=== PATIENT | male | born 1945 | race Caucasian/White ===

== ENCOUNTER 2017-06-01 12:42 | Emergency (ER) | payer MEDICARE, OTHER ==
[~2017-06-01] VITALS: Ht 180.3 cm; Wt 108.8 kg
[~2017-06-01 12:42] MED LIST: APIX5TAB PO; FENO145T13 PO; FINA5TAB4 PO; METO25TA91 PO; NIAC500T9 PO; ROSU5TAB18 PO
[2017-06-01 13:54] LABS: INTERNATIONAL NORMALIZED RATIO 1.09 (0.93-1.1); PROTHROMBIN TIME 11.2 Seconds (9.6-11.5)
[2017-06-01 13:58] LABS: ALANINE AMINOTRANSFERASE 14 U/L (12-78); ALBUMIN 3.8 g/dL (3.4-5.0); ANION GAP 6 mmol/L (5-15); CALCIUM 8.1 mg/dL (8.5-10.1); CHLORIDE 111 mmol/L (98-107); CREATININE 0.96 mg/dL (0.7-1.3)
[2017-06-01 13:59] LABS: ALKALINE PHOSPHATASE 71 U/L (45-117); BILIRUBIN,TOTAL 0.3 mg/dL (0.2-1.0)
[2017-06-01 14:17] LABS: BASOPHILS # (AUTO) 0.07 x10^3/uL (0-0.1); BASOPHILS % (AUTO) 1 % (0-1); EOSINOPHILS # (AUTO) 0.09 x10^3/uL (0-0.4); EOSINOPHILS % (AUTO) 2 % (1-7); LYMPHOCYTES # (AUTO) 0.97 x10^3/uL (1-3.4); LYMPHOCYTES % (AUTO) 19 % (22-44); MD NO; MEAN CORPUSCULAR HEMOGLOBIN 24.7 pg (27.5-34.5); MEAN CORPUSCULAR HGB CONC 31.9 g/dL (33.2-36.2); MEAN CORPUSCULAR VOLUME 77.5 fL (81-97); MEAN PLATELET VOLUME 10.3 fL (7.4-10.4); MONOCYTES # (AUTO) 0.62 x10^3/uL (0.2-0.8); MONOCYTES % (AUTO) 12 % (2-9); NEUTROPHILS # (AUTO) 3.36 x10^3/uL (1.8-6.8); NEUTROPHILS % (AUTO) 66 % (42-75); PLATELET COUNT 222 x10^3/uL (130-400); RED BLOOD COUNT 3.88 x10^6/uL (4.38-5.82); RED CELL DISTRIBUTION WIDTH 15.4 % (9.4-14.8)
[2017-06-01] MEDS ORDERED: MULT-658 PO (15:19)
[2017-06-01] MEDS ORDERED: POTA99TA24 PO (15:19)
[2017-06-01 15:38] VITALS: BP 135/69
== END 2017-06-01 16:09 | disposition home or self-care (01) ==
LOC: ED 16:00
DX: L27.0 Generalized skin eruption due to drugs and medicaments taken internally (principal); K21.9 Gastro-esophageal reflux disease without esophagitis; E78.5 Hyperlipidemia, unspecified; I48.91 Unspecified atrial fibrillation; Z87.891 Personal history of nicotine dependence
CPT/HCPCS: 36415; 80053; 85025; 85610; 85730; 99284

== ENCOUNTER 2017-09-22 18:30 | Inpatient (IN) | payer MEDICARE, OTHER ==
[~2017-09-22] VITALS: Ht 181.6 cm; Wt 102.6 kg
[~2017-09-22 18:30] MED LIST changes: -DRON400T PO; -FERR325T16 PO; -POLY17PO5 PO
[2017-09-22] MEDS ORDERED: SODIUM CHLORIDE FLUSH 10ML SYR IVF ONE (19:00)
[2017-09-22 19:15] LABS: INTERNATIONAL NORMALIZED RATIO 1.06 (0.93-1.1); PROTHROMBIN TIME 10.9 Seconds (9.6-11.5)
[2017-09-22 19:21] LABS: MD YES; MEAN CORPUSCULAR HEMOGLOBIN 21.8 pg (27.5-34.5); MEAN CORPUSCULAR HGB CONC 31.1 g/dL (33.2-36.2); MEAN CORPUSCULAR VOLUME 70.1 fL (81-97); MEAN PLATELET VOLUME 11.7 fL (7.4-10.4); PLATELET COUNT 218 x10^3/uL (130-400); RED BLOOD COUNT 3.05 x10^6/uL (4.38-5.82); RED CELL DISTRIBUTION WIDTH 19.1 % (9.4-14.8)
[2017-09-22 19:22] LABS: ALANINE AMINOTRANSFERASE 16 U/L (12-78); ALBUMIN 3.8 g/dL (3.4-5.0); ANION GAP 8 mmol/L (5-15); CALCIUM 8.9 mg/dL (8.5-10.1); CHLORIDE 110 mmol/L (98-107)
[2017-09-22 19:23] LABS: TROPONIN I < 0.015 ng/mL (0.000-0.045)
[2017-09-22 19:26] LABS: ALKALINE PHOSPHATASE 54 U/L (45-117); BILIRUBIN,TOTAL 0.7 mg/dL (0.2-1.0); CREATININE 1.09 mg/dL (0.7-1.3); TOTAL PROTEIN 6.6 g/dL (6.4-8.2)
[2017-09-22 19:43] LABS: ANISOCYTOSIS 1+; BASOS#(MANUAL) 0.04 x10^3/uL (0-0.1); BASOS% (MANUAL) 1 % (0-1); EOS#(MANUAL) 0.23 x10^3/uL (0.0-0.4); EOS% (MANUAL) 6 % (1-7); HYPOCHROMIA 1+; LYMPH#(MANUAL) 0.59 x10^3/uL (1-3.4); LYMPHS% (MANUAL) 15 % (22-44); MONOS#(MANUAL) 0.43 x10^3/uL (0.3-2.7); MONOS% (MANUAL) 11 % (2-9); OVALOCYTES 1+; SEG#(MANUAL) 2.61 x10^3/uL (1.8-6.8); SEGS% (MANUAL) 67 % (42-75); TARGET CELLS 1+
[2017-09-22 19:44] LABS: <PLATELET ESTIMATE> ADEQUATE; LARGE PLATELETS 2+
[2017-09-22 20:06] VITALS: BP 126/62
[2017-09-22 21:00] VITALS: BP 154/74
[2017-09-22 23:07] VITALS: BP 121/70
[2017-09-22 23:28] VITALS: BP 135/72
[2017-09-23] VITALS (10 sets, daily range): BP systolic 124–161; BP diastolic 60–82
[2017-09-23] MEDS ORDERED: DRON400T PO (00:05)
[2017-09-23] MEDS ORDERED: DRONEDARONE 400MG TABLET PO ONE (01:00)
[2017-09-23] MEDS ORDERED: OXYcodone IR 5MG TABLET PO PRN (02:00)
[2017-09-23] MEDS ORDERED: morphine SULFATE 10 MG/ML, 1ML IVPush PRN (02:00)
[2017-09-23] MEDS ORDERED: ACETAMINOPHEN 325 MG TABLET PO PRN (02:00)
[2017-09-23] MEDS ORDERED: ONDANSETRON 2MG/ML, 2ML IVPush PRN (02:00)
[2017-09-23] MEDS ORDERED: DOCUSATE 100 MG CAPSULE PO PRN (02:00)
[2017-09-23] MEDS ORDERED: hydrALAzine 20 MG/ML, 1ML IVPush PRN (02:00)
[2017-09-23] MEDS ORDERED: BISACODYL 10 MG SUPP PR PRN (02:00)
[2017-09-23] MEDS ORDERED: POLYETHYLENE GLYCOL 17 GM PACKET PO PRN (02:00)
[2017-09-23] MEDS ORDERED: ONDANSETRON ODT 4 MG PO PRN (02:00)
[2017-09-23 02:47] LABS: FREE T4 (FREE THYROXINE) 0.84 ng/dL (0.76-1.46); THYROID STIMULATING HORMONE 1.22 mIU/L (0.358-3.740)
[2017-09-23] MEDS: SODIUM CHLORIDE 0.9% 1,000 ML IV SCH ×2 (02:54→20:27)
[2017-09-23 03:50] LABS: MICROSCOPIC NOT IND
[2017-09-23 03:52] LABS: CULTURE INDICATED? NO
[2017-09-23 05:44] LABS: CHLORIDE 110 mmol/L (98-107)
[2017-09-23 05:50] LABS: ALANINE AMINOTRANSFERASE 14 U/L (12-78); ALBUMIN 3.4 g/dL (3.4-5.0); ALKALINE PHOSPHATASE 42 U/L (45-117); ANION GAP 8 mmol/L (5-15); BILIRUBIN,TOTAL 0.4 mg/dL (0.2-1.0); CALCIUM 8.4 mg/dL (8.5-10.1); CREATININE 0.87 mg/dL (0.7-1.3); TOTAL PROTEIN 5.9 g/dL (6.4-8.2)
[2017-09-23 06:09] LABS: MEAN CORPUSCULAR HEMOGLOBIN 23.9 pg (27.5-34.5); MEAN CORPUSCULAR HGB CONC 32.5 g/dL (33.2-36.2); MEAN CORPUSCULAR VOLUME 73.5 fL (81-97); MEAN PLATELET VOLUME 11.6 fL (7.4-10.4); PLATELET COUNT 192 x10^3/uL (130-400); RED BLOOD COUNT 3.14 x10^6/uL (4.38-5.82); RED CELL DISTRIBUTION WIDTH 20.9 % (9.4-14.8)
[2017-09-23 06:12] LABS: BASOPHILS % (AUTO) 0 % (0-1); EOSINOPHILS # (AUTO) 0.08 x10^3/uL (0-0.4); EOSINOPHILS % (AUTO) 2 % (1-7); LYMPHOCYTES # (AUTO) 0.92 x10^3/uL (1-3.4); LYMPHOCYTES % (AUTO) 24 % (22-44); MD MORPH REVIEW ONLY; MONOCYTES # (AUTO) 0.49 x10^3/uL (0.2-0.8); MONOCYTES % (AUTO) 13 % (2-9); NEUTROPHILS # (AUTO) 2.31 x10^3/uL (1.8-6.8); NEUTROPHILS % (AUTO) 61 % (42-75)
[2017-09-23 06:13] LABS: OVALOCYTES 1+
[2017-09-23 06:14] LABS: ANISOCYTOSIS 1+
[2017-09-23 06:15] LABS: <PLATELET ESTIMATE> ADEQUATE; HYPOCHROMIA 1+; LARGE PLATELETS 2+
[2017-09-23] MEDS ORDERED: PANTOPRAZOLE 40 MG IV IVPush SCH (07:30)
[2017-09-23] MEDS: ATORVASTATIN 10 MG TABLET PO SCH (10:09)
[2017-09-23] MEDS: FENOFIBRATE 145 MG TABLET PO SCH (10:09)
[2017-09-23] MEDS: MULTIVITAMIN 1 TABLET PO SCH (10:09)
[2017-09-23] MEDS: METOPROLOL SUCCINATE 25 MG TAB.ER.24H PO SCH (10:09)
[2017-09-23] MEDS: DRONEDARONE 400MG TABLET PO SCH ×2 (10:09→20:27)
[2017-09-23] MEDS: FINASTERIDE 5 MG TABLET PO SCH (11:22)
[2017-09-24 02:08] VITALS: BP 145/79
[2017-09-24 05:40] LABS: CHOL/HDL RATIO 3.2; LDL/HDL RATIO 1.4 (0.5-3.0)
[2017-09-24 07:00] VITALS: BP 153/87
[2017-09-24 07:25] LABS: MEAN CORPUSCULAR HEMOGLOBIN 23.3 pg (27.5-34.5); MEAN CORPUSCULAR HGB CONC 31.4 g/dL (33.2-36.2); MEAN PLATELET VOLUME 11.9 fL (7.4-10.4); PLATELET COUNT 196 x10^3/uL (130-400); RED BLOOD COUNT 3.53 x10^6/uL (4.38-5.82); RED CELL DISTRIBUTION WIDTH 21.6 % (9.4-14.8)
[2017-09-24 07:42] LABS: BASOPHILS # (AUTO) 0.06 x10^3/uL (0-0.1); BASOPHILS % (AUTO) 2 % (0-1); EOSINOPHILS # (AUTO) 0.09 x10^3/uL (0-0.4); EOSINOPHILS % (AUTO) 2 % (1-7); LYMPHOCYTES # (AUTO) 0.98 x10^3/uL (1-3.4); LYMPHOCYTES % (AUTO) 22 % (22-44); MD SCAN; MONOCYTES # (AUTO) 0.54 x10^3/uL (0.2-0.8); MONOCYTES % (AUTO) 13 % (2-9); NEUTROPHILS % (AUTO) 62 % (42-75)
[2017-09-24] MEDS: DRONEDARONE 400MG TABLET PO SCH ×2 (07:55→20:54)
[2017-09-24] MEDS: FENOFIBRATE 145 MG TABLET PO SCH ×2 (07:56→20:52)
[2017-09-24] MEDS: PANTOPROZOLE 40MG TABLET PO SCH (07:56)
[2017-09-24] MEDS: MULTIVITAMIN 1 TABLET PO SCH (07:56)
[2017-09-24] MEDS: FINASTERIDE 5 MG TABLET PO SCH (07:57)
[2017-09-24] MEDS: METOPROLOL SUCCINATE 25 MG TAB.ER.24H PO SCH ×2 (07:57→20:53)
[2017-09-24] MEDS: IRON SUCROSE COMPLEX 100MG/5ML IV SCH (11:07)
[2017-09-24 13:05] VITALS: BP 153/87
[2017-09-24] MEDS ORDERED: GOLYTELY 4,000ML ORAL.SOL PO ONE (18:00)
[2017-09-24 19:23] VITALS: BP 159/79
[2017-09-24] MEDS: ATORVASTATIN 10 MG TABLET PO SCH (20:52)
[2017-09-25 02:51] VITALS: BP 151/83
[2017-09-25 07:09] VITALS: BP 123/78
[2017-09-25] MEDS ORDERED: POTASSIUM GLUCONATE 550 MG HOMEMEDPO SCH (09:00)
[2017-09-25] MEDS ORDERED: FENTANYL PF 100 MCG/2ML ONE (09:03)
[2017-09-25] MEDS ORDERED: MIDAZOLAM 1 MG/ML, 5ML ONE ×2 (09:03)
[2017-09-25] MEDS: IRON SUCROSE COMPLEX 100MG/5ML IV SCH (11:03)
[2017-09-25] MEDS: PANTOPROZOLE 40MG TABLET PO SCH (11:03)
[2017-09-25] MEDS: MULTIVITAMIN 1 TABLET PO SCH (11:03)
[2017-09-25] MEDS: DRONEDARONE 400MG TABLET PO SCH ×2 (11:04→20:16)
[2017-09-25] MEDS: FINASTERIDE 5 MG TABLET PO SCH (11:04)
[2017-09-25 12:39] VITALS: BP 104/65
[2017-09-25 19:06] VITALS: BP 108/64
[2017-09-25 20:10] VITALS: BP 131/69
[2017-09-25] MEDS: ATORVASTATIN 10 MG TABLET PO SCH (20:16)
[2017-09-25] MEDS: FENOFIBRATE 145 MG TABLET PO SCH (20:16)
[2017-09-25] MEDS: METOPROLOL SUCCINATE 25 MG TAB.ER.24H PO SCH (20:16)
[2017-09-26 00:39] VITALS: BP 124/71
[2017-09-26 06:53] VITALS: BP 106/64
[2017-09-26] MEDS: PANTOPROZOLE 40MG TABLET PO SCH (08:23)
[2017-09-26] MEDS: IRON SUCROSE COMPLEX 100MG/5ML IV SCH (10:07)
[2017-09-26] MEDS: ATORVASTATIN 10 MG TABLET PO SCH ×2 (10:08→10:10)
[2017-09-26] MEDS: FENOFIBRATE 145 MG TABLET PO SCH (10:08)
[2017-09-26] MEDS: FINASTERIDE 5 MG TABLET PO SCH (10:08)
[2017-09-26] MEDS: METOPROLOL SUCCINATE 25 MG TAB.ER.24H PO SCH (10:08)
[2017-09-26] MEDS: MULTIVITAMIN 1 TABLET PO SCH (10:08)
[2017-09-26] MEDS: DRONEDARONE 400MG TABLET PO SCH (10:08)
[2017-09-26] MEDS ORDERED: POLY17PO5 PO (11:00)
[2017-09-26] MEDS ORDERED: FERR325T16 PO (11:00)
== END 2017-09-26 12:15 | disposition home or self-care (01) | DRG 378 ==
LOC: ED 19:53 → 5SO 20:56 → EDIP 20:56 → DCLOUNGE 09-26 12:03
PROVIDERS: ADMIT Internal Medicine; ATTEND Internal Medicine
PROC: 30233N1 Transfusion of Nonautologous Red Blood Cells into Peripheral Vein, Percutaneous Approach (ICD-10-PCS; principal; 2017-09-22)
PROC: 0DBL8ZZ Excision of Transverse Colon, Via Natural or Artificial Opening Endoscopic (ICD-10-PCS; 2017-09-25)
PROC: 0DJ08ZZ Inspection of Upper Intestinal Tract, Via Natural or Artificial Opening Endoscopic (ICD-10-PCS; 2017-09-25 09:00)
DX: K57.31 Diverticulosis of large intestine without perforation or abscess with bleeding (principal); D68.69 Other thrombophilia; I71.2 Thoracic aortic aneurysm, without rupture; I48.91 Unspecified atrial fibrillation; I34.0 Nonrheumatic mitral (valve) insufficiency; E66.9 Obesity, unspecified; E78.5 Hyperlipidemia, unspecified; K63.5 Polyp of colon; I10 Essential (primary) hypertension; K21.9 Gastro-esophageal reflux disease without esophagitis; K64.8 Other hemorrhoids; N40.0 Benign prostatic hyperplasia without lower urinary tract symptoms; D50.9 Iron deficiency anemia, unspecified; Z79.01 Long term (current) use of anticoagulants; Z82.3 Family history of stroke; Z86.73 Personal history of transient ischemic attack (TIA), and cerebral infarction without residual deficits; Z87.891 Personal history of nicotine dependence; Z68.31 Body mass index [BMI] 31.0-31.9, adult
CPT/HCPCS: 36415; 71045; 80053; 80061; 81003; 82728; 83036; 83540; 83550; 83735; 84439; 84443; 84466; 84484; 85014; 85018; 85025; 85610; 86850; 86900; 86923; 88305; 93005; 99152; 99153; J1756; J2250; J3010; C9113; J7030; P9016

== ENCOUNTER → 2017-09-22 | Outpatient (CLI) | payer MEDICARE, OTHER ==
[~2017-09-22] MED LIST changes: +DRON400T PO; -FENO145T13 PO; +FENO145T30 PO; +FERR325T16 PO; +MULT-658 PO; +POLY17PO5 PO; +POTA99TA24 PO
[2017-09-22 16:12] LABS: ALBUMIN 3.8 g/dL (3.4-5.0); CALCIUM 8.3 mg/dL (8.5-10.1); CHLORIDE 111 mmol/L (98-107)
[2017-09-22 16:30] LABS: % IRON SATURATION 2 % (20-55); ALANINE AMINOTRANSFERASE 18 U/L (12-78); ALKALINE PHOSPHATASE 46 U/L (45-117); ANION GAP 10 mmol/L (5-15); BILIRUBIN,TOTAL 0.3 mg/dL (0.2-1.0); CREATININE 0.98 mg/dL (0.7-1.3); IRON LEVEL 8 mcg/dL (65-175); T4 (THYROXINE) 9.1 mcg/dL (4.5-12.1); THYROID STIMULATING HORMONE 0.998 mIU/L (0.358-3.740); TOTAL IRON BINDING CAPACITY 473 mcg/dL (250-450); TOTAL PROTEIN 6.6 g/dL (6.4-8.2)
[2017-09-22 17:20] LABS: MD SCAN; MEAN CORPUSCULAR HEMOGLOBIN 21.6 pg (27.5-34.5); MEAN CORPUSCULAR HGB CONC 30.8 g/dL (33.2-36.2); MEAN PLATELET VOLUME 12.1 fL (7.4-10.4); PLATELET COUNT 200 x10^3/uL (130-400); RED BLOOD COUNT 3.01 x10^6/uL (4.38-5.82); RED CELL DISTRIBUTION WIDTH 19.1 % (9.4-14.8)
[2017-09-22 17:21] LABS: BASOPHILS # (AUTO) 0.06 x10^3/uL (0-0.1); BASOPHILS % (AUTO) 2 % (0-1); EOSINOPHILS # (AUTO) 0.04 x10^3/uL (0-0.4); EOSINOPHILS % (AUTO) 1 % (1-7); LYMPHOCYTES % (AUTO) 20 % (22-44); MONOCYTES # (AUTO) 0.44 x10^3/uL (0.2-0.8); MONOCYTES % (AUTO) 13 % (2-9); NEUTROPHILS # (AUTO) 2.21 x10^3/uL (1.8-6.8); NEUTROPHILS % (AUTO) 64 % (42-75)
== END | disposition home or self-care (01) ==
LOC: CFH 11:43
PROVIDERS: ATTEND Internal Medicine Cardiovascular Disease
DX: I10 Essential (primary) hypertension (principal); I35.0 Nonrheumatic aortic (valve) stenosis; I48.0 Paroxysmal atrial fibrillation; E78.2 Mixed hyperlipidemia; R17 Unspecified jaundice
CPT/HCPCS: 36415; 80053; 82728; 83540; 83550; 83735; 84436; 84443; 84481; 85025

== ENCOUNTER → 2017-10-16 | Outpatient (CLI) | payer MEDICARE ==
[~2017-10-16] MED LIST changes: +DRON400T PO; +FERR325T16 PO; +POLY17PO5 PO
[2017-10-16 08:56] LABS: MEAN CORPUSCULAR HEMOGLOBIN 24.3 pg (27.5-34.5); MEAN CORPUSCULAR VOLUME 78.4 fL (81-97); MEAN PLATELET VOLUME 9.1 fL (7.4-10.4); PLATELET COUNT 450 x10^3/uL (130-400); RED BLOOD COUNT 3.38 x10^6/uL (4.38-5.82); RED CELL DISTRIBUTION WIDTH 26.8 % (9.4-14.8)
[2017-10-16 09:04] LABS: ALBUMIN 3.6 g/dL (3.4-5.0); ANION GAP 8 mmol/L (5-15); CALCIUM 8.5 mg/dL (8.5-10.1); CHLORIDE 110 mmol/L (98-107)
[2017-10-16 09:07] LABS: ALANINE AMINOTRANSFERASE 17 U/L (12-78); ALKALINE PHOSPHATASE 59 U/L (45-117); BILIRUBIN,TOTAL 0.2 mg/dL (0.2-1.0); CHOL/HDL RATIO 3.2; CHOLESTEROL, TOTAL 107 mg/dL (140-239); CREATININE 1.02 mg/dL (0.7-1.3); HDL CHOL % 31 % (26-37); HDL CHOLESTEROL (DIRECT) 33 mg/dL (40-60); LDL CHOLESTEROL,CALCULATED 40 mg/dL (54-169); LDL/HDL RATIO 1.2 (0.5-3.0); TOTAL PROTEIN 6.4 g/dL (6.4-8.2); TRIGLYCERIDES 168 mg/dL (50-200); VLDL CHOLESTEROL 34 mg/dL (0-25)
[2017-10-16 09:44] LABS: BASOPHILS # (AUTO) 0.09 x10^3/uL (0-0.1); BASOPHILS % (AUTO) 2 % (0-1); EOSINOPHILS # (AUTO) 0.09 x10^3/uL (0-0.4); EOSINOPHILS % (AUTO) 2 % (1-7); LYMPHOCYTES # (AUTO) 1.09 x10^3/uL (1-3.4); LYMPHOCYTES % (AUTO) 19 % (22-44); MD MORPH REVIEW ONLY; MONOCYTES # (AUTO) 0.63 x10^3/uL (0.2-0.8); MONOCYTES % (AUTO) 11 % (2-9); NEUTROPHILS # (AUTO) 3.72 x10^3/uL (1.8-6.8); NEUTROPHILS % (AUTO) 66 % (42-75)
[2017-10-16 09:45] LABS: ANISOCYTOSIS 1+; HYPOCHROMIA 1+; OVALOCYTES 1+; POLYCHROMASIA 1+; TARGET CELLS 1+
[2017-10-16 09:48] LABS: <PLATELET ESTIMATE> INCREASED; <PLT MORPHOLOGY> NORMAL PLT MORPH; MICROCYTOSIS 1+
== END | disposition home or self-care (01) ==
LOC: LAB 08:36
PROVIDERS: ATTEND Internal Medicine Cardiovascular Disease
DX: I10 Essential (primary) hypertension (principal); I48.0 Paroxysmal atrial fibrillation; E78.2 Mixed hyperlipidemia
CPT/HCPCS: 36415; 80053; 80061; 85025

== ENCOUNTER → 2018-02-27 | Outpatient (CLI) | payer MEDICARE ==
[~2018-02-27] MED LIST changes: +ROSU5TAB11 PO; -ROSU5TAB18 PO
[2018-02-27 09:11] LABS: CHOL/HDL RATIO 5.8; LDL/HDL RATIO 3.4 (0.5-3.0)
[2018-02-27 09:12] LABS: MD NO
[2018-02-27 09:13] LABS: BASOPHILS # (AUTO) 0.04 x10^3/uL (0-0.1); BASOPHILS % (AUTO) 1 % (0-1); EOSINOPHILS # (AUTO) 0.18 x10^3/uL (0-0.4); EOSINOPHILS % (AUTO) 4 % (1-7); LYMPHOCYTES # (AUTO) 1.15 x10^3/uL (1-3.4); LYMPHOCYTES % (AUTO) 22 % (22-44); MEAN CORPUSCULAR HGB CONC 33.1 g/dL (33.2-36.2); MEAN CORPUSCULAR VOLUME 87.5 fL (81-97); MEAN PLATELET VOLUME 10.9 fL (7.4-10.4); MONOCYTES # (AUTO) 0.62 x10^3/uL (0.2-0.8); MONOCYTES % (AUTO) 12 % (2-9); NEUTROPHILS # (AUTO) 3.26 x10^3/uL (1.8-6.8); NEUTROPHILS % (AUTO) 62 % (42-75); PLATELET COUNT 212 x10^3/uL (130-400); RED BLOOD COUNT 4.59 x10^6/uL (4.38-5.82); RED CELL DISTRIBUTION WIDTH 15.1 % (9.4-14.8)
[2018-02-27 10:24] LABS: HEMOGLOBIN A1C 6.2 % (4.2-6.3)
== END | disposition home or self-care (01) ==
LOC: LAB 08:41
PROVIDERS: ATTEND Internal Medicine Cardiovascular Disease
DX: E78.2 Mixed hyperlipidemia (principal); I10 Essential (primary) hypertension; R06.02 Shortness of breath; R73.01 Impaired fasting glucose
CPT/HCPCS: 36415; 80061; 83036; 85025

== ENCOUNTER 2018-04-02 13:42 | Observation (INO) | payer MEDICARE ==
[~2018-04-02] VITALS: Ht 181.6 cm; Wt 113.3 kg
[2018-04-02 13:40] VITALS: BP 117/76
[~2018-04-02 13:42] MED LIST changes: +ACETAMINOPHEN 325 MG TABLET ONE; +ACETAMINOPHEN 325 MG TABLET PO PRN; +ACETAMINOPHEN 650 MG/20.3 ML UDC ONE; +ALBUTEROL SULFATE 2.5 MG/3 ML NPPB PRN; +ASCO-90 PO; +BACITRACIN 50,000 UNIT ONE; +CEFAZOLIN 1,000 MG ONE; +DEXAMETHASONE 4 MG/ML, 1ML ONE; +DIAZEPAM 5 MG/ML, 2ML IVPush PRN; +DIPHENHYDRAMINE 50 MG CAPSULE PO PRN; +DOCU100T3 PO; +EPHEDRINE 50 MG/ML, 1ML ONE; +EPINEPHRINE 1 MG/ML, 1ML ONE; +FENTANYL PF 100 MCG/2ML IV PRN; +FENTANYL PF 250 MCG/5ML ONE; +HYDROmorphone 2 MG/ML, 1ML IVPush PRN; +KETOROLAC 60 MG/2 ML ONE; +LABETALOL 5MG/ML, 20ML IV PRN; +LACTATED RINGERS 1,000 ML IV SCH; +LACTATED RINGERS 1,000 ML ONE; +LORazepam 2 MG/ML, 1ML IVPush PRN; +MACUGUARD PO; +MEPERIDINE/PF 25MG/0.5ML IVPush PRN; +METO25TA35 PO; +ONDANSETRON 2MG/ML, 2ML IVPush PRN; +ONDANSETRON 2MG/ML, 2ML ONE; +OXYcodone 5 MG/5 ML ORAL.SOL UDC ONE; +OXYcodone 5 MG/5 ML ORAL.SOL UDC PO PRN; +PROMETHAZINE 25 MG/ML, 1ML IV PRN; +PROPOFOL 10 MG/ML, 20ML ONE; +ROPIvacaine/PF 0.2%, 20 ML ONE; +ROSU5TAB PO; +SODIUM CHLORIDE 0.9% 100 ML ONE; +TRANEXAMIC ACID 1,000 MG in SODIUM CHLORIDE 0.9% 100 ML IV ONE; +TRANEXAMIC ACID 100 MG/ML, 10ML ONE; +VANCOMYCIN PMX 1GM/200ML 200 ML IV ONE; +ZOLPIDEM 5MG TABLET PO PRN; +hydrALAzine 20 MG/ML, 1ML IV PRN; +morphine SULFATE 10 MG/ML, 1ML IVPush PRN; +morphine SULFATE/PF 1 MG/ML, 10ML ONE
[2018-04-02] MEDS: CEFAZOLIN PMX 1GM/50ML 50 ML IVPB SCH ×2 (14:00→17:53)
[2018-04-02] MEDS: D5%-0.45% NACL 1,000 ML IV SCH ×4 (14:19→20:35)
[2018-04-02 19:00] VITALS: BP 102/58
[2018-04-02] MEDS: DRONEDARONE 400MG TABLET PO SCH (20:33)
[2018-04-02] MEDS: ASCORBIC ACID 500 MG TABLET PO SCH (20:33)
[2018-04-02] MEDS ORDERED: DOCUSATE 100 MG CAPSULE ONE (20:47)
[2018-04-02] MEDS ORDERED: ATORVASTATIN 20 MG TABLET PO SCH (21:00)
[2018-04-03 00:05] VITALS: BP 93/51
[2018-04-03] MEDS: CEFAZOLIN PMX 1GM/50ML 50 ML IVPB SCH (02:33)
[2018-04-03] MEDS: OXYcodone/APAP 7.5/325MG TABLET PO PRN ×3 (02:47→12:09)
[2018-04-03 04:40] VITALS: BP 97/51
[2018-04-03 07:38] VITALS: BP 110/64
[2018-04-03] MEDS: DRONEDARONE 400MG TABLET PO SCH (08:16)
[2018-04-03] MEDS: ASCORBIC ACID 500 MG TABLET PO SCH (08:16)
[2018-04-03] MEDS ORDERED: MULTIVITAMINS/MINERALS TABLET PO SCH (09:00)
[2018-04-03] MEDS ORDERED: METOPROLOL TARTRATE 25 MG TABLET PO SCH (09:00)
[2018-04-03] MEDS ORDERED: FINASTERIDE 5 MG TABLET PO SCH (09:00)
[2018-04-03] MEDS ORDERED: VANCOMYCIN PMX 1GM/200ML 200 ML IVPB ONE (09:00)
[2018-04-03] MEDS ORDERED: FENOFIBRATE 145 MG TABLET PO SCH (09:00)
[2018-04-03] MEDS: D5%-0.45% NACL 1,000 ML IV SCH (10:30)
[2018-04-03] MEDS ORDERED: OXYC-306 PO (13:44)
[2018-04-03] MEDS ORDERED: ASPIRIN 325 MG TABLET EC PO SCH (17:00)
[2018-04-03] MEDS ORDERED: DOCUSATE 100 MG CAPSULE PO SCH (21:00)
[2018-04-04] MEDS ORDERED: FERROUS GLUCONATE 324 MG TABLET PO SCH (09:00)
== END 2018-04-03 14:03 | disposition home or self-care (01) ==
LOC: OUT 13:42 → 4NOR 13:42 → OUT 22:51 → 4NOR 22:52
PROVIDERS: ADMIT Orthopaedic Surgery; ATTEND Orthopaedic Surgery
DX: M17.12 Unilateral primary osteoarthritis, left knee (principal); I48.91 Unspecified atrial fibrillation
CPT/HCPCS: 27447; 36415; 73564; 85014; 85018; 96365; 96366; 96367; 97150; 97161; 97165; C1713; C1776; G0378; J0171; J0690; J1100; J1885; J2274; J2405; J2704; J2795; J3010; J3370; J7120

== ENCOUNTER → 2018-10-11 | Outpatient (CLI) | payer OTHER ==
[~2018-10-11] MED LIST changes: -ACETAMINOPHEN 325 MG TABLET ONE; -ACETAMINOPHEN 325 MG TABLET PO PRN; -ACETAMINOPHEN 650 MG/20.3 ML UDC ONE; -ALBUTEROL SULFATE 2.5 MG/3 ML NPPB PRN; -BACITRACIN 50,000 UNIT ONE; -CEFAZOLIN 1,000 MG ONE; -DEXAMETHASONE 4 MG/ML, 1ML ONE; -DIAZEPAM 5 MG/ML, 2ML IVPush PRN; -DIPHENHYDRAMINE 50 MG CAPSULE PO PRN; -EPHEDRINE 50 MG/ML, 1ML ONE; -EPINEPHRINE 1 MG/ML, 1ML ONE; -FENTANYL PF 100 MCG/2ML IV PRN; -FENTANYL PF 250 MCG/5ML ONE; -HYDROmorphone 2 MG/ML, 1ML IVPush PRN; -KETOROLAC 60 MG/2 ML ONE; -LABETALOL 5MG/ML, 20ML IV PRN; -LACTATED RINGERS 1,000 ML IV SCH; -LACTATED RINGERS 1,000 ML ONE; -LORazepam 2 MG/ML, 1ML IVPush PRN; -MEPERIDINE/PF 25MG/0.5ML IVPush PRN; -ONDANSETRON 2MG/ML, 2ML IVPush PRN; -ONDANSETRON 2MG/ML, 2ML ONE; +OXYC-306 PO; -OXYcodone 5 MG/5 ML ORAL.SOL UDC ONE; -OXYcodone 5 MG/5 ML ORAL.SOL UDC PO PRN; -PROMETHAZINE 25 MG/ML, 1ML IV PRN; -PROPOFOL 10 MG/ML, 20ML ONE; +REGADENOSON 0.4 MG/5 ML SYRINGE ONE; -ROPIvacaine/PF 0.2%, 20 ML ONE; -SODIUM CHLORIDE 0.9% 100 ML ONE; -TRANEXAMIC ACID 1,000 MG in SODIUM CHLORIDE 0.9% 100 ML IV ONE; -TRANEXAMIC ACID 100 MG/ML, 10ML ONE; -VANCOMYCIN PMX 1GM/200ML 200 ML IV ONE; -ZOLPIDEM 5MG TABLET PO PRN; -hydrALAzine 20 MG/ML, 1ML IV PRN; -morphine SULFATE 10 MG/ML, 1ML IVPush PRN; -morphine SULFATE/PF 1 MG/ML, 10ML ONE
== END | disposition home or self-care (01) ==
LOC: CFH 12:03
PROVIDERS: ATTEND Internal Medicine Cardiovascular Disease
DX: I08.3 Combined rheumatic disorders of mitral, aortic and tricuspid valves (principal); I44.0 Atrioventricular block, first degree; I10 Essential (primary) hypertension; E78.5 Hyperlipidemia, unspecified
CPT/HCPCS: 78452; 93017; 93306; A9502; J2785

== ENCOUNTER → 2018-10-15 | Outpatient (CLI) | payer OTHER ==
[~2018-10-15] MED LIST changes: -REGADENOSON 0.4 MG/5 ML SYRINGE ONE
[2018-10-15 12:47] LABS: BASOPHILS # (AUTO) 0.02 x10^3/uL (0-0.1); BASOPHILS % (AUTO) 1 % (0-1); EOSINOPHILS # (AUTO) 0.09 x10^3/uL (0-0.4); EOSINOPHILS % (AUTO) 2 % (1-7); LYMPHOCYTES # (AUTO) 0.91 x10^3/uL (1-3.4); LYMPHOCYTES % (AUTO) 18 % (22-44); MD NO; MEAN CORPUSCULAR HEMOGLOBIN 28.5 pg (27.5-34.5); MEAN CORPUSCULAR HGB CONC 32.5 g/dL (33.2-36.2); MEAN CORPUSCULAR VOLUME 87.7 fL (81-97); MONOCYTES # (AUTO) 0.47 x10^3/uL (0.2-0.8); MONOCYTES % (AUTO) 9 % (2-9); NEUTROPHILS # (AUTO) 3.51 x10^3/uL (1.8-6.8); NEUTROPHILS % (AUTO) 70 % (42-75); PLATELET COUNT 200 x10^3/uL (130-400); RED BLOOD COUNT 4.75 x10^6/uL (4.38-5.82); RED CELL DISTRIBUTION WIDTH 15.8 % (9.4-14.8)
== END | disposition home or self-care (01) ==
LOC: CFH 09:36
PROVIDERS: ATTEND Internal Medicine Cardiovascular Disease
DX: R06.02 Shortness of breath (principal)
CPT/HCPCS: 36415; 85025

== ENCOUNTER 2018-11-13 09:21 | Observation (INO) | payer OTHER ==
[~2018-11-13] VITALS: Ht 180.3 cm; Wt 108.5 kg
[~2018-11-13 09:21] MED LIST changes: -ROSU5TAB11 PO; +ROSU5TAB12 PO
[2018-11-13] MEDS: SODIUM CHLORIDE 0.9% 1,000 ML IV SCH ×2 (09:45→17:45)
[2018-11-13] MEDS ORDERED: CEFAZOLIN PMX 1GM/50ML 50 ML IVPB ONE (10:00)
[2018-11-13 10:04] VITALS: BP 142/67
[2018-11-13 10:13] LABS: BASOPHILS # (AUTO) 0.06 x10^3/uL (0-0.1); BASOPHILS % (AUTO) 1 % (0-1); EOSINOPHILS % (AUTO) 2 % (1-7); LYMPHOCYTES # (AUTO) 1.05 x10^3/uL (1-3.4); LYMPHOCYTES % (AUTO) 18 % (22-44); MD NO; MEAN CORPUSCULAR HEMOGLOBIN 29.8 pg (27.5-34.5); MEAN CORPUSCULAR HGB CONC 33.2 g/dL (33.2-36.2); MEAN CORPUSCULAR VOLUME 89.7 fL (81-97); MEAN PLATELET VOLUME 11.7 fL (7.4-10.4); MONOCYTES # (AUTO) 0.65 x10^3/uL (0.2-0.8); MONOCYTES % (AUTO) 11 % (2-9); NEUTROPHILS # (AUTO) 4.13 x10^3/uL (1.8-6.8); NEUTROPHILS % (AUTO) 69 % (42-75); PLATELET COUNT 208 x10^3/uL (130-400); RED BLOOD COUNT 4.66 x10^6/uL (4.38-5.82); RED CELL DISTRIBUTION WIDTH 15.1 % (9.4-14.8)
[2018-11-13 10:50] LABS: ANION GAP 7 mmol/L (5-15); CALCIUM 8.7 mg/dL (8.5-10.1); CHLORIDE 113 mmol/L (98-107); CREATININE 1.19 mg/dL (0.7-1.3)
[2018-11-13] MEDS ORDERED: CEFAZOLIN 1,000 MG ONE (11:52)
[2018-11-13] MEDS ORDERED: FENTANYL PF 100 MCG/2ML ONE (11:52)
[2018-11-13] MEDS ORDERED: MIDAZOLAM 1 MG/ML, 5ML ONE (11:52)
[2018-11-13] MEDS ORDERED: CEFAZOLIN PMX 1GM/50ML 50 ML ONE (11:52)
[2018-11-13] MEDS ORDERED: LIDOCAINE 2%, 20ML ONE (11:52)
[2018-11-13 13:00] VITALS: BP 133/80
[2018-11-13] MEDS ORDERED: ONDANSETRON 2MG/ML, 2ML IV PRN (13:00)
[2018-11-13] MEDS ORDERED: ZOLPIDEM 5MG TABLET PO PRN (13:00)
[2018-11-13] MEDS ORDERED: HOLD MEDICATION MC PRN (13:00)
[2018-11-13] MEDS ORDERED: HYDROcodone/APAP 5/325 TABLET PO PRN (13:00)
[2018-11-13] MEDS: ACETAMINOPHEN 325 MG TABLET PO PRN ×2 (16:59→22:48)
[2018-11-13] MEDS: CEFAZOLIN PMX 1GM/50ML 50 ML IVPB SCH (20:14)
[2018-11-13] MEDS: ATORVASTATIN 20 MG TABLET PO SCH ×2 (20:15→20:21)
[2018-11-13] MEDS: ASCORBIC ACID 500 MG TABLET PO SCH ×2 (20:15→20:21)
[2018-11-13] MEDS: SODIUM CHLORIDE FLUSH 10ML SYR IVF SCH (20:15)
[2018-11-13 20:56] VITALS: BP 133/80
[2018-11-14 01:28] VITALS: BP 149/87
[2018-11-14] MEDS: SODIUM CHLORIDE 0.9% 1,000 ML IV SCH ×2 (01:45→09:45)
[2018-11-14] MEDS: CEFAZOLIN PMX 1GM/50ML 50 ML IVPB SCH ×2 (05:27→12:45)
[2018-11-14] MEDS: ACETAMINOPHEN 325 MG TABLET PO PRN ×2 (05:32→10:06)
[2018-11-14] MEDS ORDERED: ACET325T26 PO (08:42)
[2018-11-14] MEDS ORDERED: METO25TA91 PO (08:42)
[2018-11-14 08:50] VITALS: BP 142/79
[2018-11-14] MEDS ORDERED: FINASTERIDE 5 MG TABLET PO SCH (09:00)
[2018-11-14] MEDS ORDERED: POTASSIUM CHLORIDE 8 MEQ TABLET.ER PO SCH (09:00)
[2018-11-14] MEDS ORDERED: DOCUSATE 100 MG CAPSULE PO SCH (09:00)
[2018-11-14] MEDS ORDERED: FENOFIBRATE 145 MG TABLET PO SCH (09:00)
[2018-11-14] MEDS ORDERED: MULTIVITS,STRESS FORMULA 1 TABLET PO SCH (09:00)
[2018-11-14] MEDS: ASCORBIC ACID 500 MG TABLET PO SCH (09:57)
[2018-11-14] MEDS: SODIUM CHLORIDE FLUSH 10ML SYR IVF SCH (09:57)
[2018-11-15] MEDS ORDERED: FERROUS GLUCONATE 324 MG TABLET PO SCH (09:00)
== END 2018-11-14 14:44 | disposition home or self-care (01) ==
LOC: CACL 09:21 → ORIP 12:40 → INTOOBSV 12:40 → 5SO 13:06 → DCLOUNGE 11-14 14:29
PROVIDERS: ADMIT Internal Medicine Cardiovascular Disease; ATTEND Internal Medicine Cardiovascular Disease
DX: I44.2 Atrioventricular block, complete (principal); I71.2 Thoracic aortic aneurysm, without rupture; I35.0 Nonrheumatic aortic (valve) stenosis; I34.0 Nonrheumatic mitral (valve) insufficiency; E78.2 Mixed hyperlipidemia; D64.9 Anemia, unspecified; E66.9 Obesity, unspecified; E78.5 Hyperlipidemia, unspecified; R00.1 Bradycardia, unspecified; I10 Essential (primary) hypertension; F17.210 Nicotine dependence, cigarettes, uncomplicated; Z79.899 Other long term (current) drug therapy
CPT/HCPCS: 33208; 36415; 71045; 80048; 85025; 93005; 96365; 96366; 99156; 99157; C1779; C1785; C1892; G0378; J0690; J2250; J3010; J3490

== ENCOUNTER → 2019-11-14 | Outpatient (CLI) | payer OTHER ==
[~2019-11-14] MED LIST changes: +ACET325T26 PO; +FENO145T19 PO; -FENO145T30 PO
== END | disposition home or self-care (01) ==
LOC: CVU 13:22
PROVIDERS: ATTEND Internal Medicine Cardiovascular Disease
DX: I11.9 Hypertensive heart disease without heart failure (principal); I08.0 Rheumatic disorders of both mitral and aortic valves; I71.2 Thoracic aortic aneurysm, without rupture; I48.91 Unspecified atrial fibrillation; E78.5 Hyperlipidemia, unspecified; Z95.0 Presence of cardiac pacemaker
CPT/HCPCS: 93306; 93356

== ENCOUNTER → 2019-11-19 | Outpatient (CLI) | payer MEDICARE ==
[2019-11-19 12:33] LABS: BASOPHILS # (AUTO) 0.04 x10^3/uL (0-0.1); BASOPHILS % (AUTO) 1 % (0-1); EOSINOPHILS # (AUTO) 0.08 x10^3/uL (0-0.4); EOSINOPHILS % (AUTO) 2 % (1-7); LYMPHOCYTES # (AUTO) 0.99 x10^3/uL (1-3.4); LYMPHOCYTES % (AUTO) 19 % (22-44); MD NO; MEAN CORPUSCULAR HEMOGLOBIN 29.8 pg (27.5-34.5); MEAN CORPUSCULAR HGB CONC 32.8 g/dL (33.2-36.2); MEAN CORPUSCULAR VOLUME 90.8 fL (81-97); MEAN PLATELET VOLUME 10.6 fL (7.4-10.4); MONOCYTES # (AUTO) 0.49 x10^3/uL (0.2-0.8); MONOCYTES % (AUTO) 9 % (2-9); NEUTROPHILS # (AUTO) 3.68 x10^3/uL (1.8-6.8); NEUTROPHILS % (AUTO) 70 % (42-75); PLATELET COUNT 183 x10^3/uL (130-400); RED CELL DISTRIBUTION WIDTH 13.8 % (9.4-14.8)
[2019-11-19 16:16] LABS: CHLORIDE 111 mmol/L (98-107)
[2019-11-19 16:25] LABS: ALANINE AMINOTRANSFERASE 18 U/L (12-78); ALBUMIN 4.1 g/dL (3.4-5.0); ALKALINE PHOSPHATASE 56 U/L (45-117); ANION GAP 6 mmol/L (5-15); BILIRUBIN,TOTAL 0.9 mg/dL (0.2-1.0); CALCIUM 8.7 mg/dL (8.5-10.1); CHOL/HDL RATIO 3.3; CHOLESTEROL, TOTAL 117 mg/dL (140-239); CREATININE 0.99 mg/dL (0.7-1.3); HDL CHOL % 30 % (26-37); HDL CHOLESTEROL (DIRECT) 35 mg/dL (40-60); LDL CHOLESTEROL,CALCULATED 48 mg/dL (54-169); LDL/HDL RATIO 1.4 (0.5-3.0); TRIGLYCERIDES 172 mg/dL (50-200); VLDL CHOLESTEROL 34 mg/dL (0-25)
== END | disposition home or self-care (01) ==
LOC: CFH 09:46
PROVIDERS: ATTEND Internal Medicine Cardiovascular Disease
DX: E78.2 Mixed hyperlipidemia (principal); R06.02 Shortness of breath; Z95.0 Presence of cardiac pacemaker
CPT/HCPCS: 36415; 80053; 80061; 85025

== ENCOUNTER → 2020-11-11 | Outpatient (CLI) | payer OTHER ==
[~2020-11-11] MED LIST changes: -DRON400T PO; +DRON400T6 PO; +FERR324T23 PO; -FERR325T16 PO; -OXYC-306 PO; +OXYC1TAB17 PO
[2020-11-11 11:05] LABS: ALANINE AMINOTRANSFERASE 20 U/L (12-78); ALBUMIN 3.9 g/dL (3.4-5.0); CALCIUM 8.6 mg/dL (8.5-10.1); CHOLESTEROL, TOTAL 121 mg/dL (140-239); CREATININE 0.99 mg/dL (0.7-1.3); TRIGLYCERIDES 191 mg/dL (50-200); VLDL CHOLESTEROL 38 mg/dL (0-25)
[2020-11-11 11:06] LABS: BASOPHILS % (AUTO) 1 % (0-1); EOSINOPHILS % (AUTO) 2 % (1-7); LYMPHOCYTES % (AUTO) 21 % (22-44); MEAN CORPUSCULAR HEMOGLOBIN 29.9 pg (27.5-34.5); MEAN CORPUSCULAR HGB CONC 33.7 g/dL (33.2-36.2); MEAN PLATELET VOLUME 10.3 fL (7.4-10.4); MONOCYTES % (AUTO) 11 % (2-9); NEUTROPHILS % (AUTO) 65 % (42-75); PLATELET COUNT 185 x10^3/uL (130-400); RED BLOOD COUNT 5.09 x10^6/uL (4.38-5.82); RED CELL DISTRIBUTION WIDTH 14.1 % (9.4-14.8)
[2020-11-11 11:11] LABS: ALKALINE PHOSPHATASE 76 U/L (45-117); BILIRUBIN,TOTAL 0.9 mg/dL (0.2-1.0); CHLORIDE 111 mmol/L (98-107); CHOL/HDL RATIO 3.7; HDL CHOL % 27 % (26-37); HDL CHOLESTEROL (DIRECT) 33 mg/dL (40-60); LDL CHOLESTEROL,CALCULATED 50 mg/dL (54-169); LDL/HDL RATIO 1.5 (0.5-3.0)
[2020-11-11 11:15] LABS: ANION GAP 3 mmol/L (5-15)
== END | disposition home or self-care (01) ==
LOC: LAB 10:37
PROVIDERS: ATTEND Internal Medicine Cardiovascular Disease
DX: Z51.81 Encounter for therapeutic drug level monitoring (principal); E78.2 Mixed hyperlipidemia; E66.9 Obesity, unspecified; I10 Essential (primary) hypertension; I35.0 Nonrheumatic aortic (valve) stenosis; I44.2 Atrioventricular block, complete; I48.0 Paroxysmal atrial fibrillation; I71.2 Thoracic aortic aneurysm, without rupture; Z95.0 Presence of cardiac pacemaker
CPT/HCPCS: 36415; 80053; 80061; 85025

== ENCOUNTER → 2020-11-19 | Outpatient (CLI) | payer OTHER | END | disposition home or self-care (01) | LOC: CVU 12:26 | PROVIDERS: ATTEND Internal Medicine Cardiovascular Disease | DX: I08.0 Rheumatic disorders of both mitral and aortic valves (principal); I11.9 Hypertensive heart disease without heart failure; E78.00 Pure hypercholesterolemia, unspecified; Z87.891 Personal history of nicotine dependence | CPT/HCPCS: 93306; 93356 ==